=== PATIENT | female | born 1965 | race Hispanic/Latino ===

== ENCOUNTER 2019-05-18 03:00 | Emergency (ER) | payer OTHER ==
[2019-05-18 04:06] LABS: BASOPHILS % (AUTO) 0.2 % (0.0-5.0); EOSINOPHILS % (AUTO) 0.7 % (0.0-8.0); HEMATOCRIT 30.3 % (36-48); LYMPHOCYTES % (AUTO) 32.2 % (21.0-51.0); MEAN CORPUSCULAR HEMOGLOBIN 25.6 pg (27.0-33.0); MEAN CORPUSCULAR HGB CONC 31.4 g/dL (32.0-36.0); MEAN CORPUSCULAR VOLUME 81.7 fL (79-99); NEUTROPHILS % (AUTO) 59.5 % (40.0-77.0); PLATELET COUNT (AUTO) 414 K/uL (130-400); RED BLOOD CELL COUNT(AUTO) 3.71 MIL/uL (4.00-5.50); RED CELL DISTRIBUTION WIDTH 17.1 % (11.0-15.5); WHITE BLOOD COUNT (AUTO) 10.1 K/uL (4.8-10.8)
[2019-05-18 04:13] LABS: CREATININE 0.6 mg/dL (0.5-1.5); POTASSIUM 5.2 mmol/L (3.5-5.1)
[2019-05-18 04:17] LABS: INR 0.98 (0.85-1.15); PARTIAL THROMBOPLASTIN TIME 25.4 SEC (26.3-35.5); PROTHROMBIN TIME 10.3 SEC (9.6-11.6)
[2019-05-18 04:18] LABS: ALBUMIN 3.4 g/dL (3.5-5.0); BILIRUBIN,TOTAL 0.3 mg/dL (0.2-1.0); TOTAL PROTEIN, SERUM 7.4 g/dL (6.0-8.3)
[2019-05-18] MEDS ORDERED: MORPHINE SULFATE 4 MG/1ML SYG ONE (05:15)
[2019-05-18] MEDS ORDERED: ASPIRIN 325 MG TABLET ONE (05:15)
[2019-05-18] MEDS ORDERED: ONDANSETRON HCL 4 MG/2 ML VIAL ONE (05:15)
== END 2019-05-18 09:05 | disposition home or self-care (01) ==
LOC: EDH 03:00
DX: R07.89 Other chest pain (principal); K44.9 Diaphragmatic hernia without obstruction or gangrene; E11.9 Type 2 diabetes mellitus without complications; I10 Essential (primary) hypertension; Z88.0 Allergy status to penicillin; Z88.2 Allergy status to sulfonamides
CPT/HCPCS: 36415; 71045; 71275; 80053; 82550; 84484; 85025; 85610; 85730; 93005; 96374; 96375; 99285; J2270; J2405

== ENCOUNTER 2019-05-28 08:38 | Emergency (ER) | payer OTHER ==
[2019-05-28] MEDS ORDERED: ASPIRIN 325 MG TABLET ONE (08:54)
[2019-05-28 09:03] LABS: BASOPHILS % (AUTO) 0.5 % (0.0-5.0); EOSINOPHILS % (AUTO) 1.7 % (0.0-8.0); HEMATOCRIT 31.6 % (36-48); LYMPHOCYTES % (AUTO) 43.5 % (21.0-51.0); MEAN CORPUSCULAR HEMOGLOBIN 26.1 pg (27.0-33.0); MEAN CORPUSCULAR HGB CONC 31.3 g/dL (32.0-36.0); MEAN CORPUSCULAR VOLUME 83.2 fL (79-99); MONOCYTES % (AUTO) 5.8 % (3.0-13.0); NEUTROPHILS % (AUTO) 48.2 % (40.0-77.0); PLATELET COUNT (AUTO) 391 K/uL (130-400); RED CELL DISTRIBUTION WIDTH 16.7 % (11.0-15.5); WHITE BLOOD COUNT (AUTO) 6.6 K/uL (4.8-10.8)
[2019-05-28 09:26] LABS: INR 0.95 (0.85-1.15); PARTIAL THROMBOPLASTIN TIME 24.7 SEC (26.3-35.5)
[2019-05-28 09:53] LABS: B-TYPE NATRIURETIC PEPTIDE 23 pg/mL (0-100); CREATININE 0.8 mg/dL (0.5-1.5); POTASSIUM 3.6 mmol/L (3.5-5.1)
[2019-05-28 09:58] LABS: ALBUMIN 3.7 g/dL (3.5-5.0); BILIRUBIN,TOTAL 0.2 mg/dL (0.2-1.0); TOTAL PROTEIN, SERUM 7.3 g/dL (6.0-8.3)
[2019-05-28 10:15] LABS: APPEARANCE,URINE Clear (CLEAR); BILIRUBIN,URINE Negative (NEGATIVE); COLOR,URINE Yellow (YELLOW); GLUCOSE, URINE (UA) Negative (NEGATIVE); KETONES,URINE Negative (NEGATIVE); LEUKOCYTE ESTERASE ,URINE Trace (NEGATIVE); NITRATE,URINE Negative (NEGATIVE); OCCULT BLOOD,URINE Negative (NEGATIVE); PROTEIN,URINE Negative (NEGATIVE); UROBILINOGEN,URINE 0.2 mg/dL (0.2-1.0)
[2019-05-28 10:24] LABS: AMPHET/METH SCREEN,URINE NEGATIVE (NEGATIVE); BARBITURATE SCREEN, URINE NEGATIVE (NEGATIVE); BENZODIAZEPINES SCREEN,URINE NEGATIVE (NEGATIVE); CANNABINOID SCREEN,URINE NEGATIVE (NEGATIVE); COCAINE SCREEN,URINE NEGATIVE (NEGATIVE); OPIATE SCREEN,URINE NEGATIVE (NEGATIVE); PHENCYCLIDINE SCREEN,URINE NEGATIVE (NEGATIVE)
[2019-05-28] MEDS ORDERED: IOHEXOL 350 MG/ML 100ML INFUS..BTL IV ONE (10:24)
[2019-05-28 10:29] LABS: BACTERIA,URINE Rare /HPF (None Seen); RBC,URINE 0-1 /HPF (0-1); SQUAMOUS EPITHELIAL CELL,UR Rare /HPF (0-2)
== END 2019-05-28 11:21 | disposition home or self-care (01) ==
LOC: EDH 08:38
DX: R07.89 Other chest pain (principal); E11.65 Type 2 diabetes mellitus with hyperglycemia; I10 Essential (primary) hypertension; Z88.0 Allergy status to penicillin; Z95.1 Presence of aortocoronary bypass graft; Z87.891 Personal history of nicotine dependence; Z86.711 Personal history of pulmonary embolism
CPT/HCPCS: 36415; 71045; 71275; 80053; 80305; 81001; 82550; 83880; 84484; 85025; 85610; 85730; 93005; 99285; Q9967

== ENCOUNTER 2019-06-16 20:21 | Emergency (ER) | payer SELFPAY ==
[2019-06-16 21:39] LABS: BASOPHILS % (AUTO) 0.4 % (0.0-5.0); EOSINOPHILS % (AUTO) 1.1 % (0.0-8.0); HEMATOCRIT 31.5 % (36-48); LYMPHOCYTES % (AUTO) 40.6 % (21.0-51.0); MEAN CORPUSCULAR HEMOGLOBIN 25.7 pg (27.0-33.0); MEAN CORPUSCULAR HGB CONC 31.4 g/dL (32.0-36.0); MEAN CORPUSCULAR VOLUME 81.8 fL (79-99); MONOCYTES % (AUTO) 6.8 % (3.0-13.0); NEUTROPHILS % (AUTO) 50.8 % (40.0-77.0); PLATELET COUNT (AUTO) 429 K/uL (130-400); RED BLOOD CELL COUNT(AUTO) 3.85 MIL/uL (4.00-5.50); RED CELL DISTRIBUTION WIDTH 15.9 % (11.0-15.5); WHITE BLOOD COUNT (AUTO) 11.1 K/uL (4.8-10.8)
[2019-06-16 21:51] LABS: CREATININE 0.8 mg/dL (0.5-1.5); POTASSIUM 3.9 mmol/L (3.5-5.1)
[2019-06-16 21:53] LABS: ALBUMIN 3.8 g/dL (3.5-5.0); BILIRUBIN,TOTAL 0.1 mg/dL (0.2-1.0); INR 0.92 (0.85-1.15)
== END 2019-06-16 21:57 | disposition short-term general hospital (02) ==
LOC: EDH 20:21
DX: I63.59 Cerebral infarction due to unspecified occlusion or stenosis of other cerebral artery (principal); I10 Essential (primary) hypertension; E11.9 Type 2 diabetes mellitus without complications; Z88.0 Allergy status to penicillin; Z95.0 Presence of cardiac pacemaker
CPT/HCPCS: 36415; 70450; 71045; 80053; 82550; 82948; 83721; 84484; 85025; 85610; 85730; 93005; 99291

== ENCOUNTER 2019-06-21 13:56 | Inpatient (IN) | payer OTHER ==
[~2019-06-21] VITALS: Ht 157.5 cm; Wt 72.8 kg
[2019-06-21 14:38] LABS: BASOPHILS % (AUTO) 0.2 % (0.0-5.0); EOSINOPHILS % (AUTO) 1.4 % (0.0-8.0); HEMATOCRIT 33.2 % (36-48); LYMPHOCYTES % (AUTO) 37.7 % (21.0-51.0); MEAN CORPUSCULAR HEMOGLOBIN 26.3 pg (27.0-33.0); MEAN CORPUSCULAR HGB CONC 31.6 g/dL (32.0-36.0); MEAN CORPUSCULAR VOLUME 83.2 fL (79-99); MONOCYTES % (AUTO) 5.2 % (3.0-13.0); PLATELET COUNT (AUTO) 438 K/uL (130-400); RED BLOOD CELL COUNT(AUTO) 3.99 MIL/uL (4.00-5.50); RED CELL DISTRIBUTION WIDTH 16.2 % (11.0-15.5); WHITE BLOOD COUNT (AUTO) 9.8 K/uL (4.8-10.8)
[2019-06-21 14:42] LABS: CREATININE 0.9 mg/dL (0.5-1.5); POTASSIUM 3.9 mmol/L (3.5-5.1)
[2019-06-21 14:46] LABS: ALBUMIN 3.7 g/dL (3.5-5.0); BILIRUBIN,TOTAL 0.1 mg/dL (0.2-1.0)
[2019-06-21 14:47] LABS: INR 0.92 (0.85-1.15); PARTIAL THROMBOPLASTIN TIME 25.2 SEC (26.3-35.5)
[2019-06-21] MEDS ORDERED: HEPARIN SODIUM 5000UNIT/ML 1ML VIAL ONE (14:50)
[2019-06-21] MEDS ORDERED: ASPIRIN 81MG TAB.CHEW ONE (14:50)
[2019-06-21] MEDS: SODIUM CHLORIDE 0.9% 1000ML 1,000 ML IV SCH (16:45)
[2019-06-21] MEDS ORDERED: DiphenhydrAMINE HCL 50 MG/ML VIAL ONE (17:12)
[2019-06-21] MEDS ORDERED: IOHEXOL-350 75 ML VIAL IV ONE ×3 (17:31→17:33)
[2019-06-21] MEDS: HEPARIN SODIUM 5000UNIT/ML 1ML VIAL SQ SCH (18:00)
[2019-06-21] MEDS ORDERED: SODIUM CHLORIDE 0.9% 1000ML 1,000 ML IV ONE (18:07)
[2019-06-21] MEDS ORDERED: CLOP75TA14 PO (21:50)
[2019-06-21] MEDS ORDERED: TRAZ150T79 PO (21:51)
[2019-06-21] MEDS ORDERED: MIRT-92 PO (21:51)
[2019-06-21] MEDS ORDERED: NPH,100V SQ (21:56)
[2019-06-21] MEDS ORDERED: INSU500V SQ (21:56)
[2019-06-21 22:25] VITALS: BP 141/73
[2019-06-21 23:43] VITALS: BP 147/73
[2019-06-22 03:51] VITALS: BP 146/87
[2019-06-22] MEDS: SODIUM CHLORIDE 0.9% 1000ML 1,000 ML IV SCH (04:05)
[2019-06-22] MEDS ORDERED: GLUCAGON 1MG KIT 1 MG ML IM PRN (04:15)
[2019-06-22] MEDS ORDERED: DEXTROSE 50%-WATER 50 ML DISP.SYRIN IV PRN (04:15)
[2019-06-22 04:42] LABS: HEMATOCRIT 30.9 % (36-48); INR 0.92 (0.85-1.15); MEAN CORPUSCULAR HEMOGLOBIN 25.5 pg (27.0-33.0); MEAN CORPUSCULAR HGB CONC 30.4 g/dL (32.0-36.0); MEAN CORPUSCULAR VOLUME 83.7 fL (79-99); PLATELET COUNT (AUTO) 385 K/uL (130-400); RED BLOOD CELL COUNT(AUTO) 3.69 MIL/uL (4.00-5.50); RED CELL DISTRIBUTION WIDTH 16.2 % (11.0-15.5)
[2019-06-22 04:55] LABS: ALANINE AMINOTRANSFERASE 23 U/L (12-78); ALBUMIN 3.1 g/dL (3.5-5.0); ASPARTATE AMINOTRANSFERASE 12 U/L (10-37); BILIRUBIN,TOTAL 0.1 mg/dL (0.2-1.0); CARBON DIOXIDE 25 mmol/L (21-32); CHLORIDE 104 mmol/L (101-111); CHOLESTEROL 137 mg/dL (<200); CREATINE KINASE, TOTAL 42 U/L (21-232); CREATININE 0.8 mg/dL (0.5-1.5); GLOMERULAR FILTR. RATE CALC 79 mL/min (>60); GLUCOSE,RANDOM 151 mg/dL (70-105); HDL CHOLESTEROL 46 mg/dL (35-85); LDL DIRECT 66 mg/dL (0-99); MYOGLOBIN 16 ng/mL (10-92); POTASSIUM 3.6 mmol/L (3.5-5.1); SODIUM SERUM 139 mmol/L (136-145); THYROID STIMULATING HORMONE 1.43 uIU/mL (0.36-3.74); TOTAL PROTEIN, SERUM 6.7 g/dL (6.0-8.3); TRIGLYCERIDES 238 mg/dL (30-200); TROPONIN I < 0.04 ng/mL (0.00-0.06); UREA NITROGEN, BLOOD 17 mg/dL (7-18)
[2019-06-22 05:04] LABS: HEMOGLOBIN A1C 8.3 % (4.0-6.0)
[2019-06-22] MEDS: INSULIN HUMULIN R 100 UNIT/ML 3ML SQ SCH ×5 (05:18→20:59)
[2019-06-22] MEDS: HEPARIN SODIUM 5000UNIT/ML 1ML VIAL SQ SCH ×2 (05:25→21:00)
[2019-06-22 05:40] LABS: ERYTHROCYTE SEDIMENTATION RATE 32 MM/HR (0-30)
[2019-06-22 08:00] VITALS: BP 138/84
--- NOTE | 2019-06-22 08:45 | NUR ---
AM ASSESSMENT PT LAYING IN BED, HOB ELEVATED 30 DEGREES, WATCHING TV. A/O X 3. NO SOB. NO DISTRESS NOTED. DENIES CHEST PAIN OR DISCOMFORT. DENIES PALPITATIONS. TELE: PACED. LT SIDED WEAKNESS UPPER/LOWER EXTREMITY. C/O TINGLING TO LT ARM. DENIES N/V AND/OR DIARRHEA. BEDREST. PHYS THERAPY & SPEECH TO EVAL TODAY. INSTRUCTED TO CALL FOR ASSISTANCE. CALL BHAVANA W/IN REACH.
[2019-06-22] MEDS: FAMOTIDINE 20MG TAB 20 MG TAB PO SCH ×2 (09:00→20:09)
[2019-06-22] MEDS ORDERED: FAMOTIDINE/PF 20 MG/2 ML VIAL IV SCH (09:00)
[2019-06-22] MEDS: ASPIRIN 81MG TAB.CHEW PO SCH (09:00)
[2019-06-22] MEDS ORDERED: IRON SUCROSE COMPLEX 300 MG in SODIUM CHLORIDE 0.9% 50 ML IV SCH (09:45)
[2019-06-22] MEDS: IRON SUCROSE COMPLEX 300 MG in SODIUM CHLORIDE 0.9% 250 ML IV SCH (11:27)
--- NOTE | 2019-06-22 11:28 | NUR ---
DYSPHAGIA EVAL COMPLETED. -S/S OF ASPIRATION. RECOMMEND REGULAR TEXTURE, NECTAR-THICK LIQUIDS; PILLS WHOLE WITH LIQUIDS. RECOMMENDATIONS: 1. DYSPHAGIA THERAPY 3-5X WEEK TO INCREASE ORAL MOTOR STRENGTH AND PHARYNGEAL SWALLOW: LTG#1: Pt WILL TOLERATE LEAST RESTRICTIVE DIET TO MEET NUTRITION/HYDRATION WITH NO S/S OF ASPIRATION. LTG#2: SKILLED EDUCATION Pt/FAMILY/STAFF STG#1: Pt WILL PARTICIPATE IN LARYNGEAL ELEVATION/EXCURSION EXERCISES WITH 80% ACCURACY. STG#2: Pt WILL TOLERATE NECTAR-THICK LIQUIDS, REGULAR TEXTURE WITH NO OVERT S/S OF ASPIRATION. STG#3: Pt WILL TOLERATE THERAPEUTIC TRIALS OF ADVANCED TEXTURE OF THIN LIQUIDS WITH NO S/S OF ASPIRATION. STG#4: SKILLED EDUCATION Pt/FAMILY/STAFF. Addendum: 06/22/19 at 1133 by URMILA BAEZ, [facility] Amended: Links added.
[2019-06-22] MEDS ORDERED: COMPOUND IV MISC 1 EACH IVSOLN MISC PRN (11:30)
[2019-06-22] MEDS: ACETAMINOPHEN 325 MG TAB PO PRN ×2 (11:33→21:33)
--- NOTE | 2019-06-22 11:46 | NUR ---
COGNITIVE-LINGUISTIC EVAL COMPLETED. WITHIN FUNCTIONAL LIMITS. EVALUATION: Pt AAOX3. Pt REQUESTS WANTS AND NEEDS INDEPENDENTLY. Pt INTELLIGIBLE AT 100% ACCURACY TO THE UNFAMILIAR LISTENER. Pt COMMUNICATING AT CONVERSATIONAL LEVEL WITH NO DEFICITS IDENTIFIED AT THIS TIME. Pt COMPLETED COGNITIVE-LINGUISTIC EVALUATION TARGETING: ORIENTATION, ATTENTION/CONCENTRATION, MEMORY (IMMEDIATE, SHORT-TERM AND LONG-TERM), PROBLEM SOLVING, LOGIC/REASONING/INFERENCE, THOUGHT ORGANIZATION, FUNCTIONAL MATH AND TELLING TIME. Pt ABLE TO COMPLETE TASKS WITH CORRECT AND TIMELY ANSWERS TO ALL SECTIONS. G-CODES SPOKEN LANGUAGE EXPRESSION: [id number] Addendum: 06/22/19 at 1147 by URMILA BAEZ [facility] Amended: Links added.
[2019-06-22 11:54] VITALS: BP 130/78
--- NOTE | 2019-06-22 14:17 | NUR ---
NUTRITION EDUCATION COMPLETED PT ADMITS TO LIVING IN A [facility] AND STATES SHE HAS LIMITED FOOD OPTIONS. IN ADDITION, PT REPORTS HAVING MULTIPLE FOOD ALLERGIES AND WAS PREVIOUSLY DIAGNOSED WITH COLITIS. RD PROVIDED DIABETES AND HEART HEALTHY DIET AND NUTRITION EDUCATION ACCORDING TO HER NEEDS AND DIET RESTRICTIONS. ALTERED NUTRITION RELATED LABS ALSO REVIEWED WITH THE PT (A1C 8%, TG 238). ALL QUESTIONS WERE ANSWERED. EDUCATION HANDOUTS WERE PROVIDED IN ROMANIAN. Addendum: 06/22/19 at [address] Amended: Links added.
[2019-06-22 15:50] VITALS: BP 134/80
--- NOTE | 2019-06-22 15:57 | NUR ---
INITIAL Patient lives at [facility]. Emergency contact is brother, Felipe Hernandez, [phone]. She has no home services or DME. Patient is independent and is able to drive if she needed to. Patient states she just moved from [place] and has no local PCP. Pharmacy is [facility] in [place]. DCP is back to [facility]. Patient has no insurance or benefits. She is a [place] citizen and has worked in the . Patient was provided with community resources for post hospitalization follow up. She educated on [employer] $4 medication program and [facility] $5 medication program. Patient is being assisted by [employer] for financial matters. Patient refused Good RX card because she states she already has 3 cards. Addendum: 06/22/19 at 1608 by NIRALI LEE SS Amended: Links added.
--- NOTE | 2019-06-22 16:08 | NUR ---
HOMELESS & Mental Health Patient states she just moved from [place] last moved and is presently staying at [facility]. Patient has brother, Felipe Hernandez who lives in [place] but she refuses to stat with him. Patient states she has been staying at different shelters in [place] and managed to live with no income since she had her heart surgery in September 2016. Patient states she has never filed for disability. Patient states she was just released from [facility] in [place] on 06/19/2019. The homeless senior care assisted in purchasing her discharge medication. Patient informed SW that she had appointment with [facility] for 05/25/2019 at 8am but will need to reschedule. Patient states that she suffers from anxiety and depression and has been diagnosed with Bipolar and Major Depression. Patient informed SW that she tried to commit suicide last year and spend [facility] in a [facility] hospital in [place]. Patient denies suicidal/homicidal ideations at this time. Patient also denies auditory/visual hallucinations. SW provided with [facility] Crisis Hotline. SW will follow up as needed.
[2019-06-22] MEDS: METFORMIN HCL 500 MG TAB.SR.24H PO SCH (16:19)
--- NOTE | 2019-06-22 16:22 | NUR ---
STATUS/DCP PT MODE OF TRANSPORTATION UPON DC HOME IS [facility].
[2019-06-22 20:28] VITALS: BP 145/84
[2019-06-22] MEDS ORDERED: ATORVASTATIN CALCIUM 20 MG TABLET PO SCH (21:00)
[2019-06-22 23:59] VITALS: BP 156/89
[2019-06-23 03:54] VITALS: BP 139/76
--- NOTE | 2019-06-23 06:21 | NUR ---
PAIN MEDICATION PATIENT CALLED REQUESTING PAIN MEDICATION. PATIENT HAS AN ORDER FOR PRN TYLENOL. PATIENT REFUSED MEDICATION STATES SHE HAS CHRONIC PAIN AND THAT TYLENOL DOESNT WORK FOR HER. I ASKED HER WHAT IT WAS THAT SHE TOOK AT HOME BECAUSE I DIDNT SEE ANYTHING LISTED IN HER HOME MEDS SHE STATED SHE DOESNT TAKE ANYTHING. SHE WAS ADVISED THAT I COULD CALL THE DOCTOR FOR AN ORDER FOR SOMETHING STRONGER AND SHE REFUSED STATED SHE DIDNT WANT ANYTHING THAT SHE HAS BEEN IN PAIN FOR DAYS BUT REFUSES TO SAY ANYTHING BECAUSE ITS POINTLESS SINCE THE NURSES TAKE 3 HOURS TO DO ANYTHING ABOUT IT. TRIED TO CONVINCE PATIENT TO AT LEAST TAKE TYLENOL WHILE I CALLED THE DOCTOR AND OBTAINED NEW ORDERS SHE REFUSED.
[2019-06-23] MEDS: INSULIN HUMULIN R 100 UNIT/ML 3ML SQ SCH ×2 (06:44→11:47)
[2019-06-23] MEDS: METFORMIN HCL 500 MG TAB.SR.24H PO SCH (08:00)
--- NOTE | 2019-06-23 08:01 | NUR ---
Patient in no apparent distress. I attempted to do my head to toe physical assessment and patient is refusing to be touched stating, " I don't want you to touch me." I educated patient on importance of monitoring of the various organ systems in the body. Patient still refused the physical assessment. Patient states she is in pain but unwilling to verbalize and number and stating "there's nothing you all can give me to take this pain away anyway." As previous shift reported, patient states she's been in pain for days. Of note, patient stated "morphine and dilaudid are the only things that work for me. Will attempt to give scheduled meds. Will discuss and suggest psychiatric consult to hospitalist. Will continue to monitor patient.
[2019-06-23 08:11] VITALS: BP 141/74
[2019-06-23] MEDS: FAMOTIDINE 20MG TAB 20 MG TAB PO SCH (08:38)
[2019-06-23] MEDS: ASPIRIN 81MG TAB.CHEW PO SCH (08:38)
[2019-06-23] MEDS: IRON SUCROSE COMPLEX 300 MG in SODIUM CHLORIDE 0.9% 250 ML IV SCH (08:38)
[2019-06-23] MEDS: HEPARIN SODIUM 5000UNIT/ML 1ML VIAL SQ SCH (08:39)
--- NOTE | 2019-06-23 09:00 | NUR ---
Patient refusing all medication. Extensive education conducted on importance of adhering to medication regimen. Patient insists she doesn't want to take her medications. Will continue to reinforce importance of maintaining treatment plan.
--- NOTE | 2019-06-23 10:27 | NUR ---
DYSPHAGIA TREATMENT COMPLETED. RECOMMEND REGULAR TEXTURES, THIN LIQUIDS; PILLS WHOLE WITH LIQUIDS. Pt RAISED TO 90 DEGREES IN BED PARTICIPATING IN BREAKFAST. Pt REQUIRED COAXING TO PARTICIPATE IN THERAPEUTIC INTERVENTION. Pt CURRENTLY ON NECTAR-THICK LIQUID, REGULAR TEXTURE. Pt PARTICIPATED IN THERAPEUTIC TRIALS OF ADVANCED TEXTURES OF THIN LIQUIDS X5 WITH NO OVERT S/S OF ASPIRATION. Pt REPORTS SHE IS DOING BETTER. RECOMMEND DIET UPGRADE TO THIN LIQUIDS AT THIS TIME. CREDIT AND COLLECTION MANAGER COORDINATED WITH NURSE. CREDIT AND COLLECTION MANAGER WILL CONTINUE TO FOLLOW Pt. Addendum: 06/23/19 at 1031 by URMILA BAEZ, [facility] Amended: Links added.
[2019-06-23] MEDS ORDERED: ATOR20TA65 PO ×2 (11:06→11:07)
[2019-06-23] MEDS ORDERED: PANT40TA PO (11:06)
[2019-06-23 11:47] VITALS: BP 130/70
--- NOTE | 2019-06-23 14:29 | NUR ---
Patient in no apparent distress. Speech is clear. No difficulty swallowing. No facial droop. All extremities strong, and able to ambulate independently. Patient alert and oriented x 4. Patient is being discharged at this time.
== END 2019-06-23 14:30 | disposition home or self-care (01) | DRG 93 ==
LOC: EDH 13:56 → OBSVTOIN 13:57 → EDHIP 13:57 → 2AH 20:02
PROVIDERS: ADMIT Internal Medicine; ATTEND Internal Medicine
DX: R20.2 Paresthesia of skin (principal); E78.5 Hyperlipidemia, unspecified; E11.9 Type 2 diabetes mellitus without complications; E78.1 Pure hyperglyceridemia; I11.0 Hypertensive heart disease with heart failure; I25.10 Atherosclerotic heart disease of native coronary artery without angina pectoris; F32.9 Major depressive disorder, single episode, unspecified; Z95.810 Presence of automatic (implantable) cardiac defibrillator; Z95.1 Presence of aortocoronary bypass graft; Z86.73 Personal history of transient ischemic attack (TIA), and cerebral infarction without residual deficits; Z86.711 Personal history of pulmonary embolism; Z88.0 Allergy status to penicillin; Z88.8 Allergy status to other drugs, medicaments and biological substances
CPT/HCPCS: 36415; 70450; 70496; 70498; 71045; 80053; 80061; 82550; 82948; 83036; 83540; 83550; 83721; 83874; 84443; 84484; 85025; 85027; 85610; 85651; 85730; 92522; 92526; 92610; 93005; 93306; 93356; 93880; 99291; G0378; J1200; J1644; J1756; J1815; J7030; Q9967

== ENCOUNTER 2019-07-12 21:18 | Emergency (ER) | payer OTHER ==
[~2019-07-12 21:18] MED LIST: ATOR20TA65 PO; CLOP75TA14 PO; INSU500V SQ; MIRT-92 PO; NPH,100V SQ; PANT40TA PO; TRAZ150T79 PO
== END 2019-07-12 21:44 | disposition home or self-care (01) ==
LOC: EDH 21:18
DX: R05 Cough (principal); R06.02 Shortness of breath; R07.89 Other chest pain; J02.9 Acute pharyngitis, unspecified; E11.9 Type 2 diabetes mellitus without complications; I10 Essential (primary) hypertension; Z88.0 Allergy status to penicillin; Z95.0 Presence of cardiac pacemaker

== ENCOUNTER 2021-05-09 14:06 | Emergency (ER) | payer MEDICAID, OTHER ==
[~2021-05-09] VITALS: Ht 157.5 cm; Wt 72.6 kg
[2021-05-09 14:57] LABS: BASOPHILS % (AUTO) 0.3 % (0.0-5.0); EOSINOPHILS % (AUTO) 0.1 % (0.0-8.0); HEMATOCRIT 33.6 % (36-48); LYMPHOCYTES % (AUTO) 29.8 % (21.0-51.0); MEAN CORPUSCULAR HEMOGLOBIN 30.2 pg (27.0-33.0); MEAN CORPUSCULAR HGB CONC 32.7 g/dL (32.0-36.0); MEAN CORPUSCULAR VOLUME 92.3 fL (79-99); MONOCYTES % (AUTO) 4.7 % (3.0-13.0); NEUTROPHILS % (AUTO) 64.7 % (40.0-77.0); PLATELET COUNT (AUTO) 406 K/uL (130-400); RED BLOOD CELL COUNT(AUTO) 3.64 MIL/uL (4.00-5.50); RED CELL DISTRIBUTION WIDTH 14.4 % (11.0-15.5); WHITE BLOOD COUNT (AUTO) 13.1 K/uL (4.8-10.8)
[2021-05-09 15:09] LABS: CREATININE 0.9 mg/dL (0.5-1.5); POTASSIUM 3.8 mmol/L (3.5-5.1)
[2021-05-09 15:18] LABS: MAGNESIUM 1.6 mg/dL (1.80-2.40)
[2021-05-09 17:14] VITALS: BP 140/80
== END 2021-05-09 17:17 | disposition home or self-care (01) ==
LOC: EDH 14:06
DX: T82.111A Breakdown (mechanical) of cardiac pulse generator (battery), initial encounter (principal); R07.89 Other chest pain; E11.9 Type 2 diabetes mellitus without complications; F41.9 Anxiety disorder, unspecified; Z20.822 Contact with and (suspected) exposure to COVID-19; I25.10 Atherosclerotic heart disease of native coronary artery without angina pectoris; Z79.4 Long term (current) use of insulin; Z88.0 Allergy status to penicillin; Z95.0 Presence of cardiac pacemaker; Z86.73 Personal history of transient ischemic attack (TIA), and cerebral infarction without residual deficits; Z91.041 Radiographic dye allergy status; Y83.8 Other surgical procedures as the cause of abnormal reaction of the patient, or of later complication, without mention of misadventure at the time of the procedure; Y92.89 Other specified places as the place of occurrence of the external cause
CPT/HCPCS: 36415; 71045; 80048; 83735; 84484; 85025; 87635; 93005; 99285; C9803

== ENCOUNTER 2021-08-14 02:21 | Emergency (ER) | payer MEDICARE ==
[~2021-08-14] VITALS: Ht 157.5 cm; Wt 71.7 kg
[2021-08-14 02:49] LABS: BASOPHILS % (AUTO) 0.2 % (0.0-5.0); EOSINOPHILS % (AUTO) 0.1 % (0.0-8.0); HEMATOCRIT 32.3 % (36-48); LYMPHOCYTES % (AUTO) 17.2 % (21.0-51.0); MEAN CORPUSCULAR HEMOGLOBIN 30.3 pg (27.0-33.0); MEAN CORPUSCULAR HGB CONC 32.8 g/dL (32.0-36.0); MEAN CORPUSCULAR VOLUME 92.3 fL (79-99); MONOCYTES % (AUTO) 5.3 % (3.0-13.0); NEUTROPHILS % (AUTO) 76.8 % (40.0-77.0); PLATELET COUNT (AUTO) 316 K/uL (130-400); RED CELL DISTRIBUTION WIDTH 15.7 % (11.0-15.5); WHITE BLOOD COUNT (AUTO) 15.8 K/uL (4.8-10.8)
[2021-08-14 02:59] LABS: CREATININE 1.1 mg/dL (0.5-1.5); POTASSIUM 3.4 mmol/L (3.5-5.1)
[2021-08-14 03:04] LABS: ALBUMIN 3.5 g/dL (3.5-5.0); BILIRUBIN,TOTAL 0.2 mg/dL (0.2-1.0); MAGNESIUM 1.5 mg/dL (1.80-2.40); TOTAL PROTEIN, SERUM 6.9 g/dL (6.0-8.3)
[2021-08-14 03:13] LABS: B-TYPE NATRIURETIC PEPTIDE 789 pg/mL (0-100)
[2021-08-14 03:17] LABS: INR 1.05 (0.85-1.15); PROTHROMBIN TIME 11.4 SEC (9.6-11.6)
[2021-08-14 03:18] LABS: PARTIAL THROMBOPLASTIN TIME 23.1 SEC (26.3-35.5)
[2021-08-14 03:29] VITALS: BP 154/62
[2021-08-14] MEDS ORDERED: HYDROCODONE/ACETAMINOPHEN 5/325 MG TAB PO ONE (03:30)
== END 2021-08-14 03:26 | disposition left against medical advice (07) ==
LOC: EDH 02:21
DX: R07.89 Other chest pain (principal); E11.9 Type 2 diabetes mellitus without complications; I10 Essential (primary) hypertension; Z98.890 Other specified postprocedural states; Z88.8 Allergy status to other drugs, medicaments and biological substances; Z88.0 Allergy status to penicillin; Z91.013 Allergy to seafood; Z95.0 Presence of cardiac pacemaker
CPT/HCPCS: 36415; 80053; 83735; 83880; 84484; 85025; 85610; 85730; 93005

== ENCOUNTER 2022-07-09 12:11 | Observation (INO) | payer MEDICARE ==
[~2022-07-09] VITALS: Ht 157.5 cm; Wt 73.6 kg
[2022-07-09] MEDS ORDERED: MORPHINE 2 MG SYG IVP ONE (13:00)
[2022-07-09] MEDS ORDERED: NITROGLYCERIN 0.4 MG SL TAB SL PRN (13:00)
[2022-07-09] MEDS ORDERED: ASPIRIN 81MG CHEW TAB PO ONE (13:00)
[2022-07-09 13:35] LABS: BASOPHILS % (AUTO) 0.4 % (0.0-5.0); EOSINOPHILS % (AUTO) 0.6 % (0.0-8.0); HEMATOCRIT 36.5 % (36-48); LYMPHOCYTES % (AUTO) 30.9 % (21.0-51.0); MEAN CORPUSCULAR HEMOGLOBIN 31.2 pg (27.0-33.0); MEAN CORPUSCULAR HGB CONC 32.9 g/dL (32.0-36.0); MEAN CORPUSCULAR VOLUME 94.8 fL (79-99); MONOCYTES % (AUTO) 6.3 % (3.0-13.0); NEUTROPHILS % (AUTO) 61.4 % (40.0-77.0); PLATELET COUNT (AUTO) 368 K/uL (130-400); RED BLOOD CELL COUNT(AUTO) 3.85 MIL/uL (4.00-5.50); WHITE BLOOD COUNT (AUTO) 10.7 K/uL (4.8-10.8)
[2022-07-09 13:43] LABS: CREATININE 0.7 mg/dL (0.5-1.5); POTASSIUM 4.2 mmol/L (3.5-5.1)
[2022-07-09 13:49] LABS: ALBUMIN 3.7 g/dL (3.5-5.0); TOTAL PROTEIN, SERUM 7.5 g/dL (6.0-8.3)
[2022-07-09] MEDS ORDERED: ACETAMINOPHEN 325 MG TAB PO PRN ×2 (16:00)
[2022-07-09] MEDS ORDERED: DIPHENHYDRAMINE HCL 25 MG CAPSULE PO PRN (16:00)
[2022-07-09] MEDS ORDERED: LACTULOSE 20 GM/30 ML UDCUP PO PRN (16:00)
[2022-07-09] MEDS ORDERED: ONDANSETRON 4MG INJ IV PRN (16:00)
[2022-07-09] MEDS ORDERED: MAGNESIUM 2GM PREMIX 50ML 50 ML IV PRN (16:30)
[2022-07-09] MEDS ORDERED: LIDOCAINE HCL-MPF 1% 2ML VIAL IV PRN (16:30)
[2022-07-09] MEDS ORDERED: DEXTROSE 50%-WATER 50 ML DISP.SYRIN IV PRN (16:30)
[2022-07-09] MEDS ORDERED: POTASSIUM CHLORIDE 20MEQ/100ML 100 ML IV PRN (16:30)
[2022-07-09] MEDS ORDERED: KCL 20 MEQ ERTAB PO PRN (16:30)
[2022-07-09] MEDS ORDERED: GLUCAGON 1MG KIT 1 MG ML IM PRN (16:30)
[2022-07-09] MEDS ORDERED: POTASSIUM CHLORIDE 10% ELIXIR 20 MEQ/15 ML UDCUP PO PRN (16:30)
[2022-07-09 16:36] LABS: INR 0.97 (0.85-1.15); PROTHROMBIN TIME 10.6 SEC (9.6-11.6)
[2022-07-09 16:37] LABS: PARTIAL THROMBOPLASTIN TIME 24.5 SEC (26.3-35.5)
[2022-07-09 17:31] LABS: HEMOGLOBIN A1C 10.1 % (4.0-6.0)
[2022-07-09] MEDS: INSULIN HUMULIN R 100 UNIT/ML 3ML SQ SCH ×2 (17:35→23:12)
[2022-07-09] MEDS ORDERED: GUAIFENESIN-DM 200/20 MG 10 ML ONE (19:42)
[2022-07-09] MEDS ORDERED: HYDROCODONE/ACETAMINOPHEN 5/325 MG TAB ONE (19:42)
[2022-07-09 20:00] VITALS: BP 142/74
[2022-07-09] MEDS ORDERED: GUAIFENESIN-DM 200/20 MG 10 ML PO PRN (20:00)
[2022-07-09 23:34] VITALS: BP 150/74
[2022-07-10] MEDS: HYDROCODONE/ACETAMINOPHEN 5/325 MG TAB PO PRN ×2 (03:48→12:19)
[2022-07-10 04:00] VITALS: BP 129/79
[2022-07-10 04:44] LABS: HEMATOCRIT 36.2 % (36-48); MEAN CORPUSCULAR HEMOGLOBIN 31.1 pg (27.0-33.0); MEAN CORPUSCULAR HGB CONC 32.6 g/dL (32.0-36.0); MEAN CORPUSCULAR VOLUME 95.5 fL (79-99); RED BLOOD CELL COUNT(AUTO) 3.79 MIL/uL (4.00-5.50); RED CELL DISTRIBUTION WIDTH 14.3 % (11.0-15.5); WHITE BLOOD COUNT (AUTO) 8.8 K/uL (4.8-10.8)
[2022-07-10 04:51] LABS: CREATININE 0.7 mg/dL (0.5-1.5); POTASSIUM 3.7 mmol/L (3.5-5.1)
[2022-07-10] MEDS: INSULIN HUMULIN R 100 UNIT/ML 3ML SQ SCH ×2 (06:29→12:29)
[2022-07-10 07:30] VITALS: BP 140/82
[2022-07-10] MEDS ORDERED: PANTOPRAZOLE 40 MG/VIAL IVP SCH (09:00)
[2022-07-10] MEDS ORDERED: ENOXAPARIN SODIUM 40 MG/0.4 ML SYRINGE SQ SCH (09:00)
[2022-07-10 11:40] VITALS: BP 141/80
[2022-07-10] MEDS ORDERED: CARV3.12 PO (12:27)
[2022-07-10] MEDS ORDERED: INSU3INS3 SQ (12:27)
[2022-07-10] MEDS ORDERED: AEC81 PO (12:27)
[2022-07-10] MEDS ORDERED: METF-446 PO (12:27)
[2022-07-10] MEDS ORDERED: ATOR20TA65 PO (12:27)
[2022-07-10] MEDS ORDERED: CARVEDILOL 3.125 MG TABLET PO SCH (21:00)
[2022-07-10] MEDS ORDERED: ATORVASTATIN 20 MG TABLET PO SCH (21:00)
[2022-07-11] MEDS ORDERED: ASPIRIN 81 MG EC TAB PO SCH (09:00)
== END 2022-07-10 15:15 | disposition home or self-care (01) ==
LOC: EDH 12:11 → EDHIP 15:31 → INTOOBSV 15:31 → 4BH 19:38
PROVIDERS: ADMIT Hospitalist; ATTEND Hospitalist
DX: I25.119 Atherosclerotic heart disease of native coronary artery with unspecified angina pectoris (principal); I10 Essential (primary) hypertension; E11.9 Type 2 diabetes mellitus without complications; I42.1 Obstructive hypertrophic cardiomyopathy; F31.9 Bipolar disorder, unspecified; E78.00 Pure hypercholesterolemia, unspecified; Z79.82 Long term (current) use of aspirin; Z79.899 Other long term (current) drug therapy; Z86.711 Personal history of pulmonary embolism; Z91.199 Patient's noncompliance with other medical treatment and regimen due to unspecified reason; Z95.0 Presence of cardiac pacemaker; Z86.73 Personal history of transient ischemic attack (TIA), and cerebral infarction without residual deficits; Z79.4 Long term (current) use of insulin; Z98.890 Other specified postprocedural states
CPT/HCPCS: 96374; 99285; 83036; 84443; 84484 ×2; 80053; 83880; 85025; 85610; 85730; 82948 ×4; 36415 ×2; 71045; 93970; 93005; 96372; 96375; 80048; 85027; J1815; G0378 ×3; C9113; J1650

== ENCOUNTER 2022-11-12 22:07 | Emergency (ER) | payer MEDICARE ==
[~2022-11-12] VITALS: Ht 157.5 cm; Wt 68.0 kg
[~2022-11-12 22:07] MED LIST changes: +AEC81 PO; +CARV3.12 PO; -CLOP75TA14 PO; +INSU3INS3 SQ; -INSU500V SQ; +METF-446 PO; -MIRT-92 PO; -NPH,100V SQ; -PANT40TA PO; -TRAZ150T79 PO
[2022-11-12 22:32] LABS: BASOPHILS # (AUTO) 0.03 K/uL (0.00-0.20); BASOPHILS % (AUTO) 0.3 % (0.0-5.0); EOSINOPHILS # (AUTO) 0.03 K/uL (0.00-0.70); EOSINOPHILS % (AUTO) 0.3 % (0.0-8.0); HEMATOCRIT 35.4 % (36-48); IMMATURE GRANULOCYTE ABSOLUTE 0.03 K/uL (0-1); LYMPHOCYTES # (AUTO) 3.6 K/uL (1.0-4.8); LYMPHOCYTES % (AUTO) 33.6 % (21.0-51.0); MEAN CORPUSCULAR HEMOGLOBIN 31.4 pg (27.0-33.0); MEAN CORPUSCULAR HGB CONC 33.3 g/dL (32.0-36.0); MEAN CORPUSCULAR VOLUME 94.1 fL (79-99); MONOCYTES # (AUTO) 0.6 K/uL (0.1-1.0); MONOCYTES % (AUTO) 5.6 % (3.0-13.0); NEUTROPHILS # (AUTO) 6.5 K/uL (1.8-7.7); NEUTROPHILS % (AUTO) 59.9 % (40.0-77.0); PLATELET COUNT (AUTO) 312 K/uL (130-400); RED BLOOD CELL COUNT(AUTO) 3.76 MIL/uL (4.00-5.50); RED CELL DISTRIBUTION WIDTH 13.6 % (11.0-15.5); WHITE BLOOD COUNT (AUTO) 10.8 K/uL (4.8-10.8)
[2022-11-12 22:42] LABS: POTASSIUM 3.7 mmol/L (3.5-5.1)
[2022-11-12 22:51] LABS: BILIRUBIN,TOTAL 0.3 mg/dL (0.2-1.0); TOTAL PROTEIN, SERUM 7.8 g/dL (6.0-8.3)
[2022-11-12] MEDS ORDERED: 0.9%NACL 1000ML 1,000 ML IV ONE (23:00)
[2022-11-13 02:23] VITALS: BP 149/79; PULSE 74; RESP 16; O2SAT 98
== END 2022-11-13 02:32 | disposition home or self-care (01) ==
LOC: EDH 22:07
DX: R07.9 Chest pain, unspecified (principal); I10 Essential (primary) hypertension; E78.00 Pure hypercholesterolemia, unspecified; Z88.0 Allergy status to penicillin; Z88.8 Allergy status to other drugs, medicaments and biological substances; Z91.013 Allergy to seafood; Z79.899 Other long term (current) drug therapy
CPT/HCPCS: 99285; 96360; 71045; 96361 ×2; 84484; 80053; 85025; 82948; 36415; 93005; J7030

== ENCOUNTER 2023-03-31 05:44 | Day surgery (SDC) | payer MEDICARE ==
[2023-03-31] VITALS (10 sets, daily range): BP systolic 111–154; BP diastolic 58–80; PULSE 62–86; RESP 14–17
[~2023-03-31] VITALS: Ht 157.5 cm; Wt 68.7 kg
[~2023-03-31 05:44] MED LIST changes: -AEC81 PO; -ATOR20TA65 PO; +DAPA5TAB PO; +INSU100C6 SQ; +INSU100V12 SQ; -INSU3INS3 SQ; +LOSA50TA64 PO; -METF-446 PO; +ROSU10TA28 PO; +TRAZ-187 PO
[2023-03-31] MEDS ORDERED: 0.9%NACL 1000ML 1,000 ML IV ONE (06:29)
[2023-03-31] MEDS ORDERED: PROPOFOL 10 MG/ML 20ML VIAL IV ONE (07:40)
== END 2023-03-31 09:30 | disposition home or self-care (01) ==
LOC: DAH 05:44 → ENDO 05:44
PROVIDERS: ATTEND Internal Medicine Gastroenterology
DX: Z12.11 Encounter for screening for malignant neoplasm of colon (principal); R13.10 Dysphagia, unspecified; K44.9 Diaphragmatic hernia without obstruction or gangrene; K22.2 Esophageal obstruction; K29.50 Unspecified chronic gastritis without bleeding; R14.0 Abdominal distension (gaseous); I10 Essential (primary) hypertension; I25.10 Atherosclerotic heart disease of native coronary artery without angina pectoris; I42.9 Cardiomyopathy, unspecified; E08.9 Diabetes mellitus due to underlying condition without complications; Z88.0 Allergy status to penicillin; Z88.3 Allergy status to other anti-infective agents; Z95.0 Presence of cardiac pacemaker; Z90.710 Acquired absence of both cervix and uterus; Z98.890 Other specified postprocedural states; Z86.73 Personal history of transient ischemic attack (TIA), and cerebral infarction without residual deficits; Z79.899 Other long term (current) drug therapy
CPT/HCPCS: 43249; 82948 ×2; 93005; 43239; G0121; J7030 ×2; J2704; C1726; A4620; A4215 ×2; A4223; A4657; A7002; A4222; A4221; A4663; A4606; 45378; J3490

== ENCOUNTER → 2023-04-27 | Outpatient (CLI) | payer MEDICARE | END | disposition home or self-care (01) | LOC: RAH 11:05 | PROVIDERS: ATTEND Surgery | DX: M48.07 Spinal stenosis, lumbosacral region (principal); R13.10 Dysphagia, unspecified; K44.9 Diaphragmatic hernia without obstruction or gangrene; R14.0 Abdominal distension (gaseous); E08.9 Diabetes mellitus due to underlying condition without complications; M54.50 Low back pain, unspecified | CPT/HCPCS: 78264; 72110; A9541 ==

== ENCOUNTER → 2023-05-28 | Outpatient (CLI) | payer MEDICARE ==
[2023-05-28 15:41] LABS: ALBUMIN 4.1 g/dL (3.5-5.0); BILIRUBIN,TOTAL 0.2 mg/dL (0.2-1.0); POTASSIUM 4.4 mmol/L (3.5-5.1)
== END | disposition home or self-care (01) ==
LOC: LAB 14:06
PROVIDERS: ATTEND Student in an Organized Health Care Education/Training Program
DX: I47.10 Supraventricular tachycardia, unspecified (principal); R07.9 Chest pain, unspecified
CPT/HCPCS: 36415; 80053; 80061

== ENCOUNTER 2023-07-22 06:00 | Observation (INO) | payer MEDICARE ==
[2023-07-20 11:37] LABS: BASOPHILS # (AUTO) 0.03 K/uL (0.00-0.20); BASOPHILS % (AUTO) 0.3 % (0.0-5.0); EOSINOPHILS # (AUTO) 0.04 K/uL (0.00-0.70); EOSINOPHILS % (AUTO) 0.4 % (0.0-8.0); HEMATOCRIT 38.3 % (36-48); IMMATURE GRANULOCYTE ABSOLUTE 0.03 K/uL (0-1); LYMPHOCYTES # (AUTO) 2.7 K/uL (1.0-4.8); LYMPHOCYTES % (AUTO) 27.9 % (21.0-51.0); MEAN CORPUSCULAR HEMOGLOBIN 31.3 pg (27.0-33.0); MEAN CORPUSCULAR HGB CONC 33.4 g/dL (32.0-36.0); MEAN CORPUSCULAR VOLUME 93.6 fL (79-99); MONOCYTES # (AUTO) 0.5 K/uL (0.1-1.0); MONOCYTES % (AUTO) 5.2 % (3.0-13.0); NEUTROPHILS # (AUTO) 6.5 K/uL (1.8-7.7); NEUTROPHILS % (AUTO) 65.9 % (40.0-77.0); PLATELET COUNT (AUTO) 416 K/uL (130-400); RED BLOOD CELL COUNT(AUTO) 4.09 MIL/uL (4.00-5.50); RED CELL DISTRIBUTION WIDTH 14.3 % (11.0-15.5); WHITE BLOOD COUNT (AUTO) 9.8 K/uL (4.8-10.8)
[2023-07-20 11:50] LABS: POTASSIUM 3.7 mmol/L (3.5-5.1)
[2023-07-20 12:06] VITALS: BP 130/67; PULSE 80; RESP 18
[~2023-07-22] VITALS: Ht 157.5 cm; Wt 66.4 kg
[2023-07-22] VITALS (28 sets, daily range): BP systolic 112–165; BP diastolic 56–91; PULSE 71–92; RESP 13–20; O2SAT 95
[~2023-07-22 06:00] MED LIST changes: -CARV3.12 PO; +DILT120C78 PO; +FENO200C28 PO; -LOSA50TA64 PO; +OMEP40CA21 PO; -ROSU10TA28 PO; -TRAZ-187 PO; +TRAZ150T79 PO
[2023-07-22] MEDS ORDERED: DEXAMETHASONE SOD PHOSPHATE 10MG/ML 1ML VIAL ONE (06:58)
[2023-07-22] MEDS ORDERED: LIDOCAINE PF 100MG/5ML (2%) SYRINGE 5ML ONE (06:58)
[2023-07-22] MEDS ORDERED: SUCCINYLCHOLINE CHLORIDE 20 MG/ML 10 ML VIAL ONE (06:59)
[2023-07-22] MEDS ORDERED: PROPOFOL 10 MG/ML 20ML VIAL IV ONE (06:59)
[2023-07-22] MEDS ORDERED: FENTANYL CITRATE PF 50 MCG/1 ML 2ML VIAL ONE (06:59)
[2023-07-22] MEDS ORDERED: MIDAZOLAM HCL 1 MG/ML 2ML VIAL ONE (06:59)
[2023-07-22] MEDS ORDERED: ROCURONIUM BROMIDE 10MG/1ML 5ML VL ONE ×2 (06:59→08:57)
[2023-07-22] MEDS ORDERED: GLYCOPYRROLATE 0.2 MG/ML 5 ML VIAL ONE (06:59)
[2023-07-22] MEDS ORDERED: ONDANSETRON 4MG INJ ONE (06:59)
[2023-07-22] MEDS ORDERED: NEOSTIGMINE METHYLSULFATE 1MG/ML IV ONE (06:59)
[2023-07-22] MEDS ORDERED: PHENYLEPHRINE HCL 10 MG/ML 1ML VIAL IV ONE (07:03)
[2023-07-22] MEDS: CLINDAMYCIN IVPB 900MG/50ML 50 ML IV ONE (08:20)
[2023-07-22] MEDS ORDERED: FENTANYL CITRATE PF 50 MCG/1 ML 5ML AMP IV ONE (08:46)
[2023-07-22] MEDS: BUPIVACAINE/PF 0.5% 30ML VIAL ONE (08:51)
[2023-07-22] MEDS ORDERED: ONDANSETRON 4MG INJ IVP PRN (10:00)
[2023-07-22] MEDS: ENOXAPARIN SODIUM 30 MG/0.3 ML SQ SCH (10:00)
[2023-07-22] MEDS ORDERED: KETOROLAC 15MG/ML VIAL (15MG/ML) IV PRN (10:00)
[2023-07-22] MEDS ORDERED: PROCHLORPERAZINE 10MG/2ML INJ IV PRN (10:00)
[2023-07-22] MEDS: ONDANSETRON 4MG INJ ONE (10:59)
[2023-07-22] MEDS: MEPERIDINE-PF 25 MG/ML SYG ONE (11:02)
[2023-07-22] MEDS: INSULIN HUMULIN R 100 UNIT/ML 3ML SQ SCH (11:30)
[2023-07-22] MEDS: SUGAMMADEX SODIUM 200 MG/2 ML VIAL IV ONE (11:57)
[2023-07-22] MEDS: 0.9%NACL 1000ML 1,000 ML IV ONE (11:57)
[2023-07-22] MEDS: LACTATED RINGERS 1000ML 1,000 ML IV SCH (12:01)
[2023-07-22] MEDS: HYDROMORPHONE 0.5 MG SYG (0.5MG/0.5ML) IVP PRN (14:50)
[2023-07-22] MEDS: FAMOTIDINE 20MG VIAL IV SCH (20:38)
[2023-07-22] MEDS: DILTIAZEM 120MG SR CAP PO SCH (20:38)
[2023-07-22] MEDS: HYDROCODONE/ACETAMINOPHEN 7.5/325 MG 15 ML UDCUP PO PRN (20:39)
[2023-07-22] MEDS ORDERED: LISI5TAB21 PO (20:47)
[2023-07-23 03:00] VITALS: BP 145/66; PULSE 71; RESP 16
[2023-07-23 08:00] VITALS: BP 152/75; PULSE 90; RESP 20; O2SAT 95
[2023-07-23 11:21] VITALS: BP 142/71; PULSE 74; RESP 20
== END 2023-07-23 15:15 | disposition home or self-care (01) ==
LOC: DAH 06:00 → INTOOBSV 06:01 → DAHIP 06:01 → 4AH 11:25
PROVIDERS: ADMIT Surgery; ATTEND Surgery
DX: K44.9 Diaphragmatic hernia without obstruction or gangrene (principal); K22.4 Dyskinesia of esophagus; E11.9 Type 2 diabetes mellitus without complications; I42.9 Cardiomyopathy, unspecified; G62.9 Polyneuropathy, unspecified; Z86.73 Personal history of transient ischemic attack (TIA), and cerebral infarction without residual deficits; Z90.710 Acquired absence of both cervix and uterus; Z88.0 Allergy status to penicillin; Z79.899 Other long term (current) drug therapy
CPT/HCPCS: 80048; 85025; 86850; 86900; 86901; 36415; 93005; 96374; 96376 ×2; 96375; 43282; 82948 ×6; 97161; 97116; 97530 ×2; A6260; J1815; A4600; A4215 ×2; J3490 ×5; J3010 ×2; J1100; J0330; J7030; J2001; J2250; J2704; J2405 ×2; J2710; J0665; J2175; J2371; J1170 ×3; G0168; A4930 ×3; C1781; G0378 ×3; 43235; J1650; A4221; A4222; A4223; A4663